=== PATIENT | male | born 1935 | race Caucasian/White ===

== ENCOUNTER 2020-10-25 11:48 | Inpatient (IN) | payer MEDICARE ==
[~2020-10-25] VITALS: Ht 177.8 cm; Wt 83.0 kg
[~2020-10-25 11:48] MED LIST: ATOR20TA PO; CLOP75TA15 PO
[2020-10-25 12:59] LABS: BASOPHILS # (AUTO) 0.1 X10'3 (0-0.2); BASOPHILS % (AUTO) 0.9 % (0-1); EOSINOPHILS # (AUTO) 0.1 X10'3 (0-0.9); EOSINOPHILS % (AUTO) 0.9 % (0-6); HEMATOCRIT 58.2 % (42.0-52.0); LYMPHOCYTES # (AUTO) 0.9 X10'3 (1.1-4.8); LYMPHOCYTES % (AUTO) 5.7 % (21-51); MEAN CORPUSCULAR HEMOGLOBIN 29.3 PG (27.0-31.0); MEAN CORPUSCULAR HGB CONC 33.2 g/dL (33.0-36.5); MEAN CORPUSCULAR VOLUME 88.2 FL (78-98); MEAN PLATELET VOLUME 9.8 FL (7.4-10.4); MONOCYTES # (AUTO) 1.1 X10'3 (0-0.9); MONOCYTES % (AUTO) 6.9 % (2-12); NEUTROPHILS # (AUTO) 13.2 X10'3 (1.8-7.7); NEUTROPHILS % (AUTO) 85.6 % (42-75); PLATELET COUNT 317 X10'3 (140-440); RED CELL DISTRIBUTION WIDTH 17.9 % (11.5-14.5); WHITE BLOOD COUNT 15.4 X10'3 (4.5-11.0)
[2020-10-25 13:13] LABS: HEMOGLOBIN 19.3 g/dl (14.0-17.9); PARTIAL THROMBOPLASTIN TIME 41 SECONDS (22-32)
[2020-10-25 13:17] LABS: ALANINE AMINOTRANSFERASE 40 U/L (12-78); ALBUMIN 4.1 G/DL (3.4-5.0); ALBUMIN/GLOBULIN RATIO 1.1 (1.1-1.5); ALKALINE PHOSPHATASE 99 IU/L (46-116); ANION GAP 12 (8-16); ASPARTATE AMINO TRANSFERASE 46 U/L (10-37); BILIRUBIN,TOTAL 1.2 MG/DL (0.1-1.0); BLOOD UREA NITROGEN 15 MG/DL (7-18); BUN/CREATININE RATIO 12.8 (5.4-32.0); CALCIUM 9.3 MG/DL (8.5-10.1); CHLORIDE 106 MMOL/L (99-107); CREATININE 1.17 MG/DL (0.60-1.10); GLUCOSE 99 MG/DL (70-104); SODIUM 144 MMOL/L (135-145); TOTAL CARBON DIOXIDE 26.5 MMOL/L (24-32); TOTAL PROTEIN 7.9 G/DL (6.4-8.2); eGFR 59 ML/MIN
[2020-10-25 13:19] LABS: TROPONIN I < 0.04 NG/ML (0.0-0.05)
[2020-10-25] MEDS ORDERED: normal saline 1000ml 1,000 ML IV ONE (14:25)
[2020-10-25] MEDS ORDERED: aspirin 325mg tablet PO ONE (14:45)
[2020-10-25] MEDS ORDERED: atorvastatin 20mg tablet PO STA (14:46)
[2020-10-25 15:09] LABS: CLARITY,URINE CLEAR (Clear); COLOR,URINE YELLOW (Yellow); GLUCOSE, URINE NEGATIVE (Neg); KETONES,URINE 15 mg/dl (Neg); LEUKOCYTE ESTERASE ,URINE NEGATIVE (Neg); NITRITES, URINE NEGATIVE (Neg); OCCULT BLOOD,URINE TRACE-INTACT (Neg); PH,URINE 5.5 (4.8-8.0); PROTEIN,URINE 30 mg/dl (Neg)
[2020-10-25 15:12] LABS: UA COLLECTION TYPE URINAL
[2020-10-25 15:14] LABS: BACTERIA,URINE NONE SEEN /HPF (Neg); HYALINE CASTS 0-3 /LPF (NEGATIVE); MUCUS STRANDS MODERATE /LPF (Neg); RBC,URINE 0-2 /HPF (0-2); SQUAMOUS EPITHELIAL CELL,UR FEW /LPF (FEW); WBC,URINE 0-4 /HPF (0-4)
[2020-10-25] MEDS ORDERED: LORazepam 2 mg/ml vial IV PRN (16:05)
[2020-10-25] MEDS ORDERED: magnesium Cl slow-release 64mg tablet PO PRN (16:05)
[2020-10-25] MEDS ORDERED: potassium Cl 20 mEq SR tablet PO PRN ×2 (16:05)
[2020-10-25] MEDS ORDERED: magnesium 2GM in 50ml NS 50 ML IV PRN (16:05)
[2020-10-25] MEDS ORDERED: magnesium 4gm in 100ml NS 100 ML IV PRN (16:05)
[2020-10-25] MEDS ORDERED: magnesium hydroxide 30ml (MOM) UD suspension PO PRN (16:05)
[2020-10-25] MEDS ORDERED: potassium Cl 40MEQ/1/2NS 520ml 520 ML IV PRN ×2 (16:05)
[2020-10-25] MEDS ORDERED: acetaminophen 325mg tablet PO PRN ×2 (16:05)
[2020-10-25] MEDS ORDERED: mag hydrox/Alum hydrox/simeth 30ml oral suspension PO PRN (16:05)
[2020-10-25] MEDS ORDERED: LORazepam 1 MG tablet PO PRN (16:05)
[2020-10-25] MEDS ORDERED: ondansetron/PF 4mg/2ml inj IV PRN (16:05)
[2020-10-25] MEDS ORDERED: ATOR20TA66 PO (16:16)
[2020-10-25] MEDS ORDERED: ASPI-1397 PO (16:16)
[2020-10-25] MEDS ORDERED: CLOP75TA34 PO (16:16)
[2020-10-25] MEDS: normal saline 1000ml 1,000 ML IV SCH (17:01)
--- NOTE | 2020-10-25 17:06 | NUR ---
NEETU SMITH(DAUGHTER) FOR RIDE WHEN DISCHARGED. PLEASE CALL [facility], SHE LIVES IN [place]
[2020-10-25] MEDS: K and/or MAG REPLACEMENT MC SCH (20:00)
[2020-10-25] MEDS: heparin, porcine 5000 units/ml vial SQ SCH (20:54)
[2020-10-26] MEDS: normal saline 1000ml 1,000 ML IV SCH ×2 (07:05→20:41)
[2020-10-26] MEDS: K and/or MAG REPLACEMENT MC SCH ×2 (08:00→20:00)
[2020-10-26] MEDS ORDERED: atorvastatin 20mg tablet PO SCH (08:00)
[2020-10-26 08:30] LABS: ALANINE AMINOTRANSFERASE 34 U/L (12-78); ALBUMIN 3.3 G/DL (3.4-5.0); ALBUMIN/GLOBULIN RATIO 1.1 (1.1-1.5); ALKALINE PHOSPHATASE 88 IU/L (46-116); ANION GAP 9 (8-16); ASPARTATE AMINO TRANSFERASE 34 U/L (10-37); BLOOD UREA NITROGEN 12 MG/DL (7-18); BUN/CREATININE RATIO 12.6 (5.4-32.0); CALCIUM 8.4 MG/DL (8.5-10.1); CHLORIDE 110 MMOL/L (99-107); CHOL/HDL RATIO 2.5 (0.00-4.99); CHOLESTEROL 73 MG/DL (0-200); CREATININE 0.95 MG/DL (0.60-1.10); GLUCOSE 88 MG/DL (70-104); HDL CHOLESTEROL 29 MG/DL (35-60); LDL CHOLESTEROL 27 MG/DL (50-100); MAGNESIUM 1.9 MG/DL (1.5-2.4); POTASSIUM 4.3 MMOL/L (3.5-5.1); SODIUM 146 MMOL/L (135-145); TOTAL CARBON DIOXIDE 27.1 MMOL/L (24-32); TOTAL PROTEIN 6.4 G/DL (6.4-8.2); TRIGLYCERIDES 70 MG/DL (20-135); eGFR 75 ML/MIN
[2020-10-26 08:32] LABS: BASOPHILS # (AUTO) 0.1 X10'3 (0-0.2); BASOPHILS % (AUTO) 0.9 % (0-1); EOSINOPHILS # (AUTO) 0.2 X10'3 (0-0.9); EOSINOPHILS % (AUTO) 1.6 % (0-6); HEMATOCRIT 53.8 % (42.0-52.0); LYMPHOCYTES # (AUTO) 0.6 X10'3 (1.1-4.8); LYMPHOCYTES % (AUTO) 6.6 % (21-51); MEAN CORPUSCULAR HEMOGLOBIN 29.2 PG (27.0-31.0); MEAN CORPUSCULAR HGB CONC 33.5 g/dL (33.0-36.5); MEAN CORPUSCULAR VOLUME 87.1 FL (78-98); MEAN PLATELET VOLUME 9.7 FL (7.4-10.4); MONOCYTES # (AUTO) 0.6 X10'3 (0-0.9); MONOCYTES % (AUTO) 6.1 % (2-12); NEUTROPHILS % (AUTO) 84.8 % (42-75); PLATELET COUNT 264 X10'3 (140-440); RED BLOOD COUNT 6.17 X10'6 (4.70-6.10); RED CELL DISTRIBUTION WIDTH 18.2 % (11.5-14.5); WHITE BLOOD COUNT 9.5 X10'3 (4.5-11.0)
[2020-10-26] MEDS: aspirin 81mg tablet.DR PO SCH (08:53)
[2020-10-26] MEDS: heparin, porcine 5000 units/ml vial SQ SCH ×2 (08:53→20:22)
[2020-10-26] MEDS: clopidogrel 75mg tablet PO SCH (08:53)
--- NOTE | 2020-10-26 09:21 | NUR ---
Patient in room ED 11. I have received report from Felipa ROMERO and had the opportunity to ask questions and assume patient care.
[2020-10-26 10:25] VITALS: BP 121/57
--- NOTE | 2020-10-26 11:37 | NUR ---
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 The patient reports to me that he never picked up his plavix from the pharmacy last time he was discharged and that he has never been "a pill person". Per the step daughter his house was somewhat desheveled. Herminio reza lives in [place] and is wanting to take him home to be with her but she is also caring for her biological father and the biological father is not happy with him coming there so she is having a hard time making a decision.
--- NOTE | 2020-10-26 11:37 | NUR ---
PAGER ID: [phone] MESSAGE: [phone] Moy, MRI done and report is back. [phone]
[2020-10-26 18:00] VITALS: BP 117/56
--- NOTE | 2020-10-26 18:37 | NUR ---
Problems reprioritized. Patient report given, questions answered & plan of care reviewed with Christel ROMERO.
[2020-10-26 22:00] VITALS: BP 116/58
[2020-10-27 02:00] VITALS: BP 126/60
[2020-10-27 06:00] VITALS: BP 130/68
--- NOTE | 2020-10-27 06:32 | NUR ---
Patient in room ORTHO 4008. I have received report from HEATHER PRASAD and had the opportunity to ask questions and assume patient care.
[2020-10-27 06:45] LABS: BASOPHILS # (AUTO) 0.2 X10'3 (0-0.2); BASOPHILS % (AUTO) 1.4 % (0-1); EOSINOPHILS # (AUTO) 0.2 X10'3 (0-0.9); EOSINOPHILS % (AUTO) 1.9 % (0-6); HEMATOCRIT 54.1 % (42.0-52.0); HEMOGLOBIN 17.9 g/dl (14.0-17.9); LYMPHOCYTES # (AUTO) 0.7 X10'3 (1.1-4.8); LYMPHOCYTES % (AUTO) 6.9 % (21-51); MEAN CORPUSCULAR HGB CONC 33.1 g/dL (33.0-36.5); MEAN CORPUSCULAR VOLUME 87.7 FL (78-98); MEAN PLATELET VOLUME 9.7 FL (7.4-10.4); MONOCYTES # (AUTO) 0.7 X10'3 (0-0.9); MONOCYTES % (AUTO) 6.6 % (2-12); NEUTROPHILS # (AUTO) 8.7 X10'3 (1.8-7.7); NEUTROPHILS % (AUTO) 83.2 % (42-75); PLATELET COUNT 256 X10'3 (140-440); RED BLOOD COUNT 6.17 X10'6 (4.70-6.10); RED CELL DISTRIBUTION WIDTH 18.3 % (11.5-14.5); WHITE BLOOD COUNT 10.4 X10'3 (4.5-11.0)
[2020-10-27 07:03] LABS: ALANINE AMINOTRANSFERASE 29 U/L (12-78); ALBUMIN 3.2 G/DL (3.4-5.0); ALBUMIN/GLOBULIN RATIO 1.1 (1.1-1.5); ALKALINE PHOSPHATASE 84 IU/L (46-116); ANION GAP 10 (8-16); ASPARTATE AMINO TRANSFERASE 32 U/L (10-37); BLOOD UREA NITROGEN 9 MG/DL (7-18); CALCIUM 8.3 MG/DL (8.5-10.1); CHLORIDE 110 MMOL/L (99-107); GLUCOSE 90 MG/DL (70-104); MAGNESIUM 1.8 MG/DL (1.5-2.4); POTASSIUM 3.8 MMOL/L (3.5-5.1); SODIUM 144 MMOL/L (135-145); TOTAL CARBON DIOXIDE 24.3 MMOL/L (24-32); TOTAL PROTEIN 6.1 G/DL (6.4-8.2); eGFR 80 ML/MIN
[2020-10-27] MEDS: K and/or MAG REPLACEMENT MC SCH ×2 (08:00→19:43)
[2020-10-27] MEDS: aspirin 81mg tablet.DR PO SCH (08:25)
[2020-10-27] MEDS: heparin, porcine 5000 units/ml vial SQ SCH ×2 (08:25→19:46)
[2020-10-27] MEDS: clopidogrel 75mg tablet PO SCH (08:26)
[2020-10-27] MEDS: atorvastatin 20mg tablet PO SCH (08:26)
[2020-10-27 10:00] VITALS: BP 138/63
[2020-10-27] MEDS: normal saline 1000ml 1,000 ML IV SCH ×2 (10:59→15:15)
--- NOTE | 2020-10-27 11:48 | NUR ---
PAGED PHYSICAL THERAPY REGARDING AN EXERCISE TOOL TO HELP STRENGTHEN PT'S RIGHT HAND
[2020-10-27 14:00] VITALS: BP 119/55
[2020-10-27 18:00] VITALS: BP 130/73
--- NOTE | 2020-10-27 18:27 | NUR ---
Problems reprioritized. Patient report given, questions answered & plan of care reviewed with HEATHER BROWN.
[2020-10-27 22:00] VITALS: BP 125/50
--- NOTE | 2020-10-28 00:49 | NUR ---
Completed NIH-pt was unable to read any words on the pages. Pt stated "I never really learned to read much." Was not able to identify what was wrong in the picture-speech is clear, not slurred.
[2020-10-28 06:11] LABS: BASOPHILS # (AUTO) 0.1 X10'3 (0-0.2); BASOPHILS % (AUTO) 1.1 % (0-1); EOSINOPHILS # (AUTO) 0.2 X10'3 (0-0.9); EOSINOPHILS % (AUTO) 1.8 % (0-6); HEMATOCRIT 52.2 % (42.0-52.0); HEMOGLOBIN 17.3 g/dl (14.0-17.9); LYMPHOCYTES # (AUTO) 0.8 X10'3 (1.1-4.8); MEAN CORPUSCULAR HEMOGLOBIN 28.8 PG (27.0-31.0); MEAN CORPUSCULAR HGB CONC 33.1 g/dL (33.0-36.5); MEAN CORPUSCULAR VOLUME 87.2 FL (78-98); MEAN PLATELET VOLUME 9.9 FL (7.4-10.4); MONOCYTES # (AUTO) 0.8 X10'3 (0-0.9); MONOCYTES % (AUTO) 7.8 % (2-12); NEUTROPHILS # (AUTO) 7.9 X10'3 (1.8-7.7); NEUTROPHILS % (AUTO) 81.3 % (42-75); PLATELET COUNT 263 X10'3 (140-440); RED BLOOD COUNT 5.98 X10'6 (4.70-6.10); RED CELL DISTRIBUTION WIDTH 18.2 % (11.5-14.5); WHITE BLOOD COUNT 9.8 X10'3 (4.5-11.0)
--- NOTE | 2020-10-28 06:12 | NUR ---
Patient in room ORTHO 4008. I have received report from Daisy ROMERO and had the opportunity to ask questions and assume patient care.
[2020-10-28 06:31] VITALS: BP 140/71
[2020-10-28 06:33] LABS: ALANINE AMINOTRANSFERASE 25 U/L (12-78); ALKALINE PHOSPHATASE 80 IU/L (46-116); ANION GAP 11 (8-16); ASPARTATE AMINO TRANSFERASE 30 U/L (10-37); BILIRUBIN,TOTAL 0.9 MG/DL (0.1-1.0); BLOOD UREA NITROGEN 10 MG/DL (7-18); BUN/CREATININE RATIO 9.4 (5.4-32.0); CHLORIDE 111 MMOL/L (99-107); CREATININE 1.06 MG/DL (0.60-1.10); GLUCOSE 92 MG/DL (70-104); MAGNESIUM 1.9 MG/DL (1.5-2.4); POTASSIUM 3.8 MMOL/L (3.5-5.1); SODIUM 146 MMOL/L (135-145); TOTAL CARBON DIOXIDE 24.5 MMOL/L (24-32); TOTAL PROTEIN 5.9 G/DL (6.4-8.2); eGFR 66 ML/MIN
[2020-10-28] MEDS: aspirin 81mg tablet.DR PO SCH (07:49)
[2020-10-28] MEDS: heparin, porcine 5000 units/ml vial SQ SCH (07:49)
[2020-10-28] MEDS: clopidogrel 75mg tablet PO SCH (07:49)
[2020-10-28] MEDS: atorvastatin 20mg tablet PO SCH (07:49)
[2020-10-28] MEDS: K and/or MAG REPLACEMENT MC SCH (08:00)
[2020-10-28 12:22] LABS: PSA, FREE 0.27 ng/mL
[2020-10-28 14:00] VITALS: BP_SYST 112; BP_SYST 131; BP_DIAS 54; BP_DIAS 78
[2020-10-28] MEDS: normal saline 1000ml 1,000 ML IV SCH (15:35)
--- NOTE | 2020-10-28 18:21 | NUR ---
pt left with daughter to go home, all belongings went with pt, and discharge was went over with daughter and pt.
== END 2020-10-28 18:19 | disposition home health service (06) | DRG 65 ==
LOC: ER 11:49 → ED HOLD 16:11 → ORTHO 4S 10-26 09:25
PROVIDERS: ADMIT Internal Medicine; ATTEND Internal Medicine
DX: I63.9 Cerebral infarction, unspecified (principal); J98.11 Atelectasis; I35.0 Nonrheumatic aortic (valve) stenosis; N40.0 Benign prostatic hyperplasia without lower urinary tract symptoms; G83.21 Monoplegia of upper limb affecting right dominant side; N18.30 Chronic kidney disease, stage 3 unspecified; R63.4 Abnormal weight loss; D75.1 Secondary polycythemia; R41.3 Other amnesia; I25.10 Atherosclerotic heart disease of native coronary artery without angina pectoris; R74.8 Abnormal levels of other serum enzymes; Z87.891 Personal history of nicotine dependence; Z86.73 Personal history of transient ischemic attack (TIA), and cerebral infarction without residual deficits; Z68.26 Body mass index [BMI] 26.0-26.9, adult
CPT/HCPCS: 36415; 70450; 70544; 70551; 71045; 80053; 80061; 81001; 83735; 84153; 84154; 84484; 85025; 85610; 85730; 87081; 93005; 96360; 97116; 97161; 97530; 99285; G0378; J1644; J7030